=== PATIENT | female | born 1970 | race African-American/Black ===

== ENCOUNTER 2016-12-23 14:37 | Emergency (ER) | payer MEDICAID ==
[~2016-12-23] VITALS: Ht 162.6 cm; Wt 60.0 kg
[~2016-12-23 14:37] MED LIST: ALPR-340 PO; BUPR100T4 PO; LISINOPRIL PO; OLAN5TAB3 PO; TRAZ-129 PO
[2016-12-24 00:39] LABS: BASOPHILS % 0.5 % (0.0-2.0); HEMATOCRIT. 42.6 % (36.0-48.0); HEMOGLOBIN. 13.9 g/dL (12.0-16.0); LYMPHOCYTES % 23.4 % (20.0-50.0); MEAN CORPUSCULAR HEMOGLOBIN 29.7 pg (28.0-32.0); MEAN CORPUSCULAR VOLUME 90.8 fL (81.0-99.0); MEAN PLATELET VOLUME 8.9 fl (7.4-10.4); MONOCYTES % 7.2 % (2.0-8.0); NEUTROPHILS % 67.9 % (40.0-76.0); PLATELET 261 x1000/uL (130-400); RED BLOOD CELL COUNT 4.69 mill/uL (4.2-5.4); RED CELL DISTRIBUTION WIDTH 13.5 % (11.6-14.6)
[2016-12-24] MEDS ORDERED: CEFTRIAXONE SODIUM 250 MG/VIAL IM ONE (00:45)
[2016-12-24] MEDS ORDERED: DOXYCYCLINE HYCLATE 100MG CAPSULE PO ONE (00:45)
[2016-12-24 00:46] LABS: CHLORIDE 103 mEq/L (98-107)
[2016-12-24 00:52] LABS: CARBON DIOXIDE 23 mEq/L (21-32); ETHANOL BLOOD < 10 mg/dL
[2016-12-24 01:30] LABS: CLARITY URINE CLOUDY (CLEAR); COLOR URINE YELLOW (YELLOW); GLUCOSE URINE NEGATIVE (NEGATIVE); KETONES URINE TRACE (NEGATIVE); LEUKOCYTE ESTERASE URINE NEGATIVE (NEGATIVE); NITRITE URINE NEGATIVE (NEGATIVE); OCCULT BLOOD URINE NEGATIVE (NEGATIVE); PH URINE 6.5 (4.5-8.0); PROTEIN URINE NEGATIVE (NEGATIVE)
[2016-12-24 02:00] LABS: *AMPHETAMINES SCREEN URINE NEGATIVE (NEGATIVE); *BARBITURATES SCREEN URINE NEGATIVE (NEGATIVE); *BENZODIAZEPINES SCREEN URINE NEGATIVE (NEGATIVE); *COCAINE SCREEN URINE NEGATIVE (NEGATIVE); CANNABINOID URINE SCREEN NEGATIVE (NEGATIVE); METHADONE URINE SCREEN NEGATIVE (NEGATIVE); OPIATES URINE SCREEN NEGATIVE (NEGATIVE); PHENCYCLIDINE URINE SCREEN NEGATIVE (NEGATIVE)
[2016-12-24] MEDS ORDERED: LORAZEPAM 1MG TABLET PO ONE (02:15)
[2016-12-24] MEDS ORDERED: LORAZEPAM 0.5MG TABLET PO ONE (16:30)
[2016-12-24 20:19] VITALS: BP 127/74
== END 2016-12-24 21:00 ==
LOC: ER 14:54
DX: F41.9 Anxiety disorder, unspecified (principal); F32.9 Major depressive disorder, single episode, unspecified; F20.9 Schizophrenia, unspecified; I10 Essential (primary) hypertension
CPT/HCPCS: 36415; 80048; 80305; 80307; 80329; 81001; 81025; 85025; 99285; G0482; 99284

== ENCOUNTER 2017-12-03 05:52 | Emergency (ER) | payer MEDICAID ==
[~2017-12-03] VITALS: Ht 167.6 cm; Wt 72.0 kg
[~2017-12-03 05:52] MED LIST changes: -TRAZ-129 PO; +TRAZ-212 PO
[2017-12-03] MEDS ORDERED: IBUPROFEN 400MG TABLET PO ONE ×2 (07:30→21:45)
[2017-12-03] MEDS ORDERED: LORAZEPAM 1MG TABLET PO ONE ×2 (09:15→21:45)
[2017-12-04 11:35] VITALS: BP 124/90
== END 2017-12-04 11:05 | disposition home or self-care (01) ==
LOC: ER 05:52
DX: S93.0 Subluxation and dislocation of ankle joint (principal); F41.9 Anxiety disorder, unspecified; I10 Essential (primary) hypertension; F20.9 Schizophrenia, unspecified; Z59.0 Homelessness; V49.60XS Unspecified car occupant injured in collision with unspecified motor vehicles in traffic accident, sequela
CPT/HCPCS: 73562; 73610; 81025; 99284; L1830; Z7610

== ENCOUNTER 2019-04-22 16:04 | Emergency (ER) | payer MEDICAID ==
[~2019-04-22] VITALS: Ht 162.6 cm; Wt 100.0 kg
[~2019-04-22 16:04] MED LIST changes: -TRAZ-212 PO; +TRAZ-251 PO
[2019-04-22] MEDS ORDERED: ASPIRIN 81MG TABLET PO ONE (19:30)
[2019-04-22] MEDS ORDERED: NITROGLYCERIN OINT 1GM/INCH UDPKT TD ONE (19:30)
[2019-04-22] MEDS ORDERED: FUROSEMIDE 40MG/4ML VIAL IV ONE (19:30)
[2019-04-22 19:42] LABS: BASOPHILS % 0.5 % (0.0-2.0); EOSINOPHILS % 1.2 % (0.0-5.0); HEMOGLOBIN. 11.8 g/dL (12.0-16.0); LYMPHOCYTES % 17.9 % (20.0-50.0); MEAN CORPUSCULAR HEMOGLOBIN 29.2 pg (28.0-32.0); MEAN CORPUSCULAR VOLUME 91.6 fL (81.0-99.0); MEAN PLATELET VOLUME 8.9 fl (7.4-10.4); MONOCYTES % 6.2 % (2.0-8.0); NEUTROPHILS % 74.2 % (40.0-76.0); PLATELET 227 x1000/uL (130-400); RED BLOOD CELL COUNT 4.04 mill/uL (4.2-5.4); RED CELL DISTRIBUTION WIDTH 15.7 % (11.6-14.6)
[2019-04-22 19:46] LABS: CHLORIDE 108 mEq/L (98-107)
[2019-04-22 19:48] LABS: INR 1.3; PARTIAL THROMBOPLASTIN TIME 47.4 sec (23.4-31.0)
[2019-04-22] MEDS ORDERED: POTASSIUM CHLORIDE 20MEQ TABLET SR PO ONE (21:30)
[2019-04-23 00:08] VITALS: BP 132/90
== END 2019-04-23 00:18 ==
LOC: ER 16:04 → CANBEDREQ 04-23 07:44
DX: I11.0 Hypertensive heart disease with heart failure (principal); I50.9 Heart failure, unspecified; E87.6 Hypokalemia; Z79.899 Other long term (current) drug therapy
CPT/HCPCS: 36415; 71045; 80053; 83880; 84484; 85025; 85610; 85730; 93005; 93970; 96374; 99285; J1940; Z7610; 99284